=== PATIENT | female | born 1950 | race Caucasian/White ===

== ENCOUNTER 2017-06-07 17:02 | Emergency (ER) | payer OTHER, MEDICAID ==
[~2017-06-07] VITALS: Ht 165.1 cm; Wt 68.0 kg
[2017-06-08 02:10] VITALS: BP 130/56
== END 2017-06-08 04:28 | disposition home or self-care (01) ==
LOC: ER 17:05
DX: S27.1XXA Traumatic hemothorax, initial encounter (principal); J94.2 Hemothorax; S22.42XA Multiple fractures of ribs, left side, initial encounter for closed fracture; S42.022A Displaced fracture of shaft of left clavicle, initial encounter for closed fracture; S27.321A Contusion of lung, unilateral, initial encounter; V43.52XA Car driver injured in collision with other type car in traffic accident, initial encounter; Y93.89 Activity, other specified; Y92.89 Other specified places as the place of occurrence of the external cause; Y99.8 Other external cause status
CPT/HCPCS: 32551; 70450; 72040; 99291